=== PATIENT | male | born 1990 | race Caucasian/White ===

== ENCOUNTER → 2017-02-25 | Outpatient (CLI) | payer OTHER ==
--- NOTE | 2017-02-26 17:13 | CPEEG ---
[f rep st] ELECTROENCEPHALOGRAM DATE OF STUDY: 02/25/2017 ORDERING PHYSICIAN: José Le MD INTERPRETATION: Normal electroencephalogram during wakefulness and sleep. There were no potentially epileptogenic abnormalities present during the recording. REPORT: This EEG contains 10 Hz alpha activity to the posterior head regions. There was no abnormal activation at rest, during photic stimulation or hyperventilation. The patient became drowsy and fe ll asleep during the study. There was no abnormal activation during drowsiness, sleep, or during megan es of arousal. /[id number]/MODL
== END ==
LOC: FCPNEURO 09:20
PROVIDERS: ATTEND Psychiatry & Neurology Neurology
DX: R42 Dizziness and giddiness (principal)

== ENCOUNTER → 2017-04-08 | Outpatient (CLI) | payer OTHER | LOC: FIMAGING 15:43 | PROVIDERS: ATTEND Internal Medicine | DX: R42 Dizziness and giddiness (principal); R51 Headache ==

== ENCOUNTER → 2018-05-24 | Outpatient (CLI) | payer OTHER | LOC: CIMAGING 16:50 | PROVIDERS: ATTEND Internal Medicine | DX: M54.9 Dorsalgia, unspecified (principal) | CPT/HCPCS: 72072-PO ==